=== PATIENT | female | born 1935 | race African-American/Black ===

== ENCOUNTER 2019-04-14 17:54 | Inpatient (IN) | payer OTHER, MEDICAID ==
[~2019-04-14] VITALS: Ht 167.6 cm; Wt 72.1 kg
[~2019-04-14 17:54] MED LIST: ALBU6.7H INH; AMLO10TA4 PO; ASPI-1158 PO; CARV3.1242 MT; CHOL200010 PO; DOCU-276 PO; FLOV44 INH; FURO10VI3 PO; IPRA4AER INH; METH40VI35 IV
[2019-04-14] MEDS ORDERED: IPRATROPIUM BROMIDE (0.02%) 0.5MG/2.5ML NEB HHN STA (19:08)
[2019-04-14] MEDS ORDERED: METHYLPREDNISOLONE SOD SUCC 125 MG/2 ML VIAL IV STA (19:08)
[2019-04-14] MEDS ORDERED: ALBUTEROL (0.083%) 2.5MG/3ML NEB HHN STA (19:08)
[2019-04-14] MEDS ORDERED: FUROSEMIDE 40MG/4ML VIAL IV ONE (19:15)
[2019-04-14 19:29] LABS: CHLORIDE 104 mEq/L (98-107)
[2019-04-14 19:36] LABS: BASOPHILS % 0.5 % (0.0-2.0); EOSINOPHILS % 4.4 % (0.0-5.0); HEMATOCRIT. 39.2 % (36.0-48.0); HEMOGLOBIN. 12.7 g/dL (12.0-16.0); LYMPHOCYTES % 29.9 % (20.0-50.0); MEAN CORPUSCULAR HEMOGLOBIN 31.5 pg (28.0-32.0); MEAN CORPUSCULAR VOLUME 96.9 fL (81.0-99.0); MEAN PLATELET VOLUME 11.7 fl (7.4-10.4); MONOCYTES % 10.1 % (2.0-8.0); NEUTROPHILS % 55.1 % (40.0-76.0); PLATELET 185 x1000/uL (130-400); RED BLOOD CELL COUNT 4.04 mill/uL (4.2-5.4); RED CELL DISTRIBUTION WIDTH 13.6 % (11.6-14.6)
[2019-04-15] VITALS: BP 106/59
[2019-04-15 01:00] VITALS: BP 106/55
[2019-04-15] MEDS ORDERED: ACETAMINOPHEN 325MG TABLET PO PRN (02:15)
[2019-04-15] MEDS ORDERED: TEMAZEPAM 15MG CAPSULE PO PRN (02:15)
[2019-04-15] MEDS ORDERED: LEVOFLOXACIN 500MG PREMIX 100 ML IV SCH ×2 (02:45→06:00)
[2019-04-15] MEDS ORDERED: LEVOFLOXACIN 250MG PREMIX 50 ML IV SCH (03:00)
[2019-04-15 04:00] VITALS: BP 115/55
[2019-04-15] MEDS: METHYLPREDNISOLONE SOD SUCC 40 MG/ML VIAL IV SCH ×2 (05:15→15:59)
[2019-04-15 08:27] VITALS: BP 119/55
[2019-04-15] MEDS: IPRATROPIUM/ALBUTEROL 0.5-3(2.5)MG/3ML NEB HHN SCH ×3 (09:00→15:59)
[2019-04-15] MEDS ORDERED: ENOXAPARIN 40MG/0.4ML SYR SUBCUT SCH (09:00)
[2019-04-15 11:34] LABS: BG BASE EXCESS 5.8 mmol/L (-2.0-2.0); BG CARBOXYHEMOGLOBIN 0.8 % (0.5-1.5); BG DEOXYHEMOGLOBIN 21.2 % (0.0-5.0); BG FRACTION INSPIRED OXYGEN 21; BG METHEMOGLOBIN 0.3 % (0.0-1.5); BG OXYGEN SATURATION 78.6 % (92.0-98.5); BG OXYHEMOGLOBIN 77.7 % (94.0-97.0); BG PCO2 52.8 mmHg (35.0-45.0); BG PO2 42.6 mmHg (75.0-100.0); BG SAMPLE SITE RIGHT BRACHIAL; BG TOTAL HEMOGLOBIN 13.7 g/dL (12.0-18.0); BG VENT MODE ROOM AIR
[2019-04-15 11:56] VITALS: BP 117/46
[2019-04-15 12:04] LABS: HEMATOCRIT 39.4 % (36.0-48.0); HEMOGLOBIN 12.8 g/dL (12.0-16.0); MEAN CORPUSCULAR HEMOGLOBIN 31.2 pg (28.0-32.0); PLATELET 163 x1000/uL (130-400); RED BLOOD CELL COUNT 4.11 mill/uL (4.2-5.4); RED CELL DISTRIBUTION WIDTH 13.5 % (11.6-14.6)
[2019-04-15 12:19] LABS: CHLORIDE 102 mEq/L (98-107)
[2019-04-15 13:16] LABS: PROTHROMBIN TIME 10.4 sec (9.6-11.0)
[2019-04-15] MEDS ORDERED: P20 PO (15:53)
[2019-04-15] MEDS ORDERED: ALBU05 NEB (15:53)
[2019-04-15] MEDS ORDERED: PRED10TA MT (15:53)
[2019-04-15] MEDS ORDERED: LEVO500T2 MT (15:53)
[2019-04-15] MEDS ORDERED: P20 MT (15:53)
[2019-04-15 16:07] VITALS: BP 116/43
[2019-04-16] MEDS ORDERED: ENOXAPARIN 30MG/0.3ML SYR SUBCUT SCH (09:00)
== END 2019-04-15 19:43 | disposition home or self-care (01) | DRG 189 ==
LOC: ER 18:23 → 6WST 21:36 → EDBEDREQTM 21:40 → EDBEDREQ 21:40 → ENRESERV 22:45
PROVIDERS: ADMIT Internal Medicine; ATTEND Internal Medicine
DX: J96.20 Acute and chronic respiratory failure, unspecified whether with hypoxia or hypercapnia (principal); J44.1 Chronic obstructive pulmonary disease with (acute) exacerbation; J84.9 Interstitial pulmonary disease, unspecified; I50.9 Heart failure, unspecified; J06.9 Acute upper respiratory infection, unspecified; I11.0 Hypertensive heart disease with heart failure; M19.90 Unspecified osteoarthritis, unspecified site; I27.20 Pulmonary hypertension, unspecified; E78.5 Hyperlipidemia, unspecified; Z87.891 Personal history of nicotine dependence; Z88.0 Allergy status to penicillin; Z88.6 Allergy status to analgesic agent; Z99.81 Dependence on supplemental oxygen; Z79.899 Other long term (current) drug therapy; Z79.82 Long term (current) use of aspirin
CPT/HCPCS: 36415; 36600; 71045; 80048; 82375; 82805; 83880; 84484; 85027; 93005; 93306; 93970; 94640; 99285; J1650; J1940; J1956; J2920; J2930; J7611; J7620

== ENCOUNTER 2020-03-15 19:18 | Emergency (ER) | payer OTHER, MEDICAID ==
[~2020-03-15] VITALS: Ht 165.1 cm; Wt 59.0 kg
[~2020-03-15 19:18] MED LIST changes: -ALBU6.7H INH; -AMLO10TA4 PO; +BRIN8DRO EACHEYE; -CHOL200010 PO; -DOCU-276 PO; +FLUT15.844 BOTHNSTRLS; -METH40VI35 IV; +TRAV2.5D EACHEYE
[2020-03-15] MEDS ORDERED: HYDROCODONE/ACETAMINOPHEN 5/325MG TABLET PO STA (19:47)
[2020-03-15 21:00] LABS: BASOPHILS % 0.7 % (0.0-2.0); EOSINOPHILS % 3.9 % (0.0-5.0); HEMATOCRIT. 38.6 % (36.0-48.0); HEMOGLOBIN. 12.7 g/dL (12.0-16.0); LYMPHOCYTES % 30.7 % (20.0-50.0); MEAN CORPUSCULAR HEMOGLOBIN 31.6 pg (28.0-32.0); MEAN CORPUSCULAR VOLUME 95.9 fL (81.0-99.0); MEAN PLATELET VOLUME 11.5 fl (7.4-10.4); MONOCYTES % 9.8 % (2.0-8.0); NEUTROPHILS % 54.9 % (40.0-76.0); PLATELET 195 x1000/uL (130-400); RED BLOOD CELL COUNT 4.03 mill/uL (4.2-5.4); RED CELL DISTRIBUTION WIDTH 13.7 % (11.6-14.6)
[2020-03-15 21:05] LABS: CHLORIDE 105 mEq/L (98-107)
[2020-03-16 00:40] VITALS: BP 101/56
== END 2020-03-16 01:29 | disposition short-term general hospital (02) ==
LOC: ER 19:18
DX: R07.89 Other chest pain (principal); I11.0 Hypertensive heart disease with heart failure; I50.9 Heart failure, unspecified; E78.00 Pure hypercholesterolemia, unspecified; J44.9 Chronic obstructive pulmonary disease, unspecified; Z87.891 Personal history of nicotine dependence; Z88.0 Allergy status to penicillin; Z88.6 Allergy status to analgesic agent; Z79.899 Other long term (current) drug therapy
CPT/HCPCS: 36415; 71045; 80053; 84484; 85025; 93005; 99285